=== PATIENT | male | born 1970 | race Caucasian/White ===

== ENCOUNTER 2018-06-16 06:35 | Day surgery (SDC) | payer OTHER ==
[2018-06-16] VITALS (14 sets, daily range): BP systolic 103–138; BP diastolic 66–87; PULSE 52–76; RESP 12–19; Ht 172.7 cm; Wt 102.7 kg
[~2018-06-16] VITALS: Ht 172.7 cm; Wt 102.7 kg
[2018-06-16] MEDS ORDERED: LIDOCAINE 2% (SDV) 5 ML INJ ONE (07:00)
[2018-06-16] MEDS ORDERED: SEVOFLURANE 15 MIN ONE (07:00)
--- NOTE | 2018-06-16 08:19 | HPN ---
Date/Time of Note Date/Time of Note DATE: 06/16/18 TIME: 08:19 Interval H&P Admission Note Pt. seen H&P reviewed: No system changes KEO ALFARO MD Jun 16, 2018 08:19
[2018-06-16] MEDS ORDERED: GLUCOSE GEL 15 GRAM TUBE PO PRN ×2 (08:30)
[2018-06-16] MEDS ORDERED: GLUCAGON 1 MG INJ IM PRN (08:30)
[2018-06-16] MEDS ORDERED: DEXTROSE 50% 50 ML SYRINGE IV PRN ×2 (08:30)
[2018-06-16] MEDS ORDERED: GLUCOSE GEL 15 GRAM TUBE BUCCAL PRN (08:30)
[2018-06-16] MEDS ORDERED: INSULIN REGULAR, HUMAN 100 UNIT/1 ML 3ML VIAL SC ONE (08:30)
--- NOTE | 2018-06-16 08:45 | PREAC ---
Date/Time of Note Date/Time of Note DATE: 06/16/18 TIME: 08:43 Anesthesia Eval and Record Evaluation Time Pre-Procedure Interview DATE: 06/16/18 TIME: 08:43 Age 47 Sex male NPO: 8 hrs Preoperative diagnosis right inguinal hernia Planned procedure right inguinal hernia repair Past Medical History Past Medical History: Includes Cardio: HTN Endo: Diabetes Surgery & Anesthesia Issues No known issue Meds Anticoagulation: No Beta Jah within 24 hr: No Reason Beta Jah not given: Pt. not on B-Jah Reported Medications [None] No Conflict Check 05/28/09 Current Medications Miscellaneous Information 1 ea NOTE XX ; Start 06/16/18 at 08:30 Glucose (Glutose) 15 gm Q15M PRN PO DECREASED GLUCOSE; Start 06/16/18 at 08:30 Glucose (Glutose) 22.5 gm Q15M PRN PO DECREASED GLUCOSE; Start 06/16/18 at 08:30 Dextrose (D50w Syringe) 25 ml Q15M PRN IV DECREASED GLUCOSE; Start 06/16/18 at 08:30 Dextrose (D50w Syringe) 50 ml Q15M PRN IV DECREASED GLUCOSE; Start 06/16/18 at 08:30 Glucagon (Glucagen) 1 mg Q15M PRN IM DECREASED GLUCOSE; Start 06/16/18 at 08:30 Glucose (Glutose) 15 gm Q15M PRN BUCCAL DECREASED GLUCOSE; Start 06/16/18 at 08:30 Meds reviewed: Yes Allergies Coded Allergies: No Known Allergies (Verified Allergy, Mild, 05/28/09) Allergies Reviewed: Yes Labs/Studies Labs Reviewed: Reviewed by anesthesiologist test: N/A Pre-procedure Exam Last vitals Vital Signs Date Temp Pulse Resp B/P (MAP) Pulse Ox O2 O2 Flow FiO2 Time Delivery Rate 06/16/18 96.5 64 16 138/87 98 Room Air 08:19 (104) Airway: Adequate mouth opening, Adequate thyromental dist Mallampati: Mallampati II Teeth: Normal Lung: Normal Heart: Normal ASA Physical Status ASA physical status: 2 Emergency: None Planned Anesthetic General/MAC: LMA Planned Pain Management Parenteral pain med Pre-operative Attestations Prior to commencing anesthesia and surgery, the patient was re-evaluated, there was verification of: *The patient's identity *The results of appropriate recent lab work and preoperative vital signs *The above evaluation not changing prior to induction *Anesthetic plan, risk benefits, alternative and complications discussed with patient/family; questions answered; patient/family understands, accepts and wishes to proceed. ANGE JONES Jun 16, 2018 08:45
[2018-06-16] MEDS ORDERED: PROPOFOL 20 ML ONE (08:51)
[2018-06-16] MEDS ORDERED: ROCURONIUM 50 MG INJ ONE (08:51)
[2018-06-16] MEDS ORDERED: BUPIVACAINE 0.5%/EPI (SDV) 10 ML INJ ONE (08:54)
[2018-06-16] MEDS ORDERED: CEFAZOLIN 1 GM INJ ONE (09:00)
[2018-06-16] MEDS ORDERED: DEXAMETHASONE 4 MG/ML 5 ML INJ ONE (09:02)
[2018-06-16] MEDS ORDERED: ONDANSETRON 4 MG INJ ONE (09:02)
[2018-06-16] MEDS ORDERED: METO-335 ORAL (09:05)
[2018-06-16] MEDS ORDERED: CANA1TAB2 PO (09:05)
[2018-06-16] MEDS ORDERED: INSU100I12 SQ (09:05)
[2018-06-16] MEDS ORDERED: INSU3INS2 SQ (09:05)
[2018-06-16] MEDS ORDERED: BENA20TA4 ORAL (09:05)
[2018-06-16] MEDS ORDERED: NEOSTIGMINE 3 MG/3 ML SYRINGE ONE (09:50)
[2018-06-16] MEDS ORDERED: GLYCOPYRROLATE 0.4 MG INJ ONE (09:50)
[2018-06-16] MEDS ORDERED: ONDANSETRON 4 MG INJ IV PRN ×2 (10:00→10:30)
[2018-06-16] MEDS ORDERED: morphine 2 MG INJ IV PRN (10:00)
[2018-06-16] MEDS ORDERED: OXYCODONE/ACETAMINOPHEN (5/325) TAB PO PRN ×4 (10:00→10:30)
--- NOTE | 2018-06-16 10:00 | OPR ---
Date/Time of Note Date/Time of Note DATE: 06/16/18 TIME: 09:55 Operative Report Procedure Date: Jun 16, 2018 Preoperative Diagnosis Right inguinal hernia without obstruction Postoperative Diagnosis Right inguinal hernia without obstruction (indirect) Operation/Procedure Performed 1. Repair right inguinal hernia with extra large plug 2. Right ilioinguinal nerve block Surgeon Keo Alfaro MD Executive Administrative Asst None Anesthesia Type: general Anesthesiologist: ANGE JONES Estimated Blood Loss: minimal Transfusion none Specimen None Grafts/Implants Extra large Bard PerFix plug Tubes/Drains None Complications none Pt Condition Post Procedure: stable Disposition: PACU Indications Enlarging and symptomatic right inguinal hernia Procedure Description After satisfactory general anesthesia was achieved, the lower abdomen was prepped and draped in the usual fashion. A 6 cm transverse skin incision was made in the right groin crease and carried down to the level of the external oblique which was opened in the direction of its fibers. The cord was retracted and preserved. The floor of the canal was intact. There was a very large indirect sac which was dissected circumferentially to its base at the internal ring and reduced. The reduction was maintained by placement of an extra-large plug which was secured circumferentially to healthy fascia with interrupted 3-0 Vicryl suture. Next the flat portion of the mesh was cut and fashioned to fit in the floor the canal is an overlay. It was anchored at the pubic tubercle with 2-0 Novafil and then run approximating mesh to inguinal ligament laterally to beyond the internal ring. A second 2-0 Novafil was then run from pubic tubercle approximating mesh to conjoined tendon to beyond the internal ring. The mesh distal to the cord was reconstituted with a single suture of 2-0 Novafil creating a new internal ring of appropriate size. The cord and nerve were then replaced beneath the external oblique which was closed with a running 3-0 Vicryl suture. Pipe's fascia was closed with interrupted 3-0 Vicryl suture. Next a right ilioinguinal nerve block was performed. 10 cc of 0.5% Marcaine with epinephrine were injected into the fascia 1 cm medial and inferior to the right anterior iliac spine. 10 more cc of local anesthetic were injected directly into the skin and subcutaneous tissues. Skin was then closed with subcuticular absorbable ihsan. Sponge and needle counts were reported as correct x2. The patient tolerated the procedure well and without incident or complication. KEO ALFARO MD Jun 16, 2018 10:00
--- NOTE | 2018-06-16 10:03 | PAC ---
Date/Time of Note Date/Time of Note DATE: 06/16/18 TIME: 10:03 Post-Anesthesia Notes Post-Anesthesia Note Last documented vital signs Vital Signs Date Temp Pulse Resp B/P (MAP) Pulse Ox O2 O2 Flow FiO2 Time Delivery Rate 06/16/18 96.5 64 16 138/87 98 Room Air 1003 (104) Activity: WNL Respiratory function: WNL Cardiovascular function: WNL Mental status: Baseline Pain reasonably controlled: Yes Hydration appropriate: Yes Nausea/Vomiting absent: Yes ANGE JONES Jun 16, 2018 10:03
[2018-06-16] MEDS ORDERED: HYDROmorphONE 1 MG/5 ML IV SYRINGE IV PRN ×3 (10:30)
[2018-06-16] MEDS ORDERED: METOCLOPRAMIDE 10 MG INJ IV PRN (10:30)
[2018-06-16] MEDS ORDERED: KETOROLAC 30 MG INJ IV PRN (10:30)
[2018-06-16] MEDS ORDERED: DIPHENHYDRAMINE 50 MG INJ IV PRN (10:30)
[2018-06-16] MEDS ORDERED: hydrALAzine 20 MG INJ IV PRN (10:30)
[2018-06-16] MEDS ORDERED: EPHEDrine SULFATE 50 MG/5 ML SYG IV PRN (10:30)
[2018-06-16] MEDS ORDERED: INSULIN ASPART [NOVOLOG] 3 ML PEN SC ONE (10:30)
[2018-06-16] MEDS ORDERED: MEPERIDINE 25 MG INJ IV PRN (10:30)
[2018-06-16] MEDS ORDERED: LABETALOL HCL 20MG INJ IV PRN (10:30)
[2018-06-16] MEDS ORDERED: ALBUTEROL 0.083% (NEB) 2.5 MG/3 ML AMP HHN PRN (10:30)
[2018-06-16] MEDS ORDERED: FENTAnyl 50 MCG/ML VIAL IV PRN ×3 (10:30)
== END 2018-06-16 11:25 | disposition home or self-care (01) ==
LOC: SDS 06:35
PROVIDERS: ATTEND Surgery
DX: K40.90 Unilateral inguinal hernia, without obstruction or gangrene, not specified as recurrent (principal); I10 Essential (primary) hypertension; E11.9 Type 2 diabetes mellitus without complications; Z79.4 Long term (current) use of insulin
CPT/HCPCS: 49505; 82962; C1781; J0690; J1100; J1815; J2405; J2710; J3010; Z7512; Z7610